=== PATIENT | female | born 1975 | race Caucasian/White ===

== ENCOUNTER 2018-04-05 17:34 | Emergency (ER) | payer OTHER ==
[~2018-04-05] VITALS: Ht 157.5 cm; Wt 99.3 kg
[~2018-04-05 17:34] MED LIST: ACEBUTCAFT PO; ACET325 PO; ACET500ER PO; ALPR.25 PO; AMOX500 PO; BUSP5 PO; CEPH500 PO; CIPR250 PO; CIPR500 PO; CLON.1; CLON.5 PO; CODGUAEL PO; CRUTCH4 USE; CYCL10 PO; DIAZ2; DICY20 PO; DIVA500ER PO; DULO30 PO; Depakene250 MG PO; Esgic Tablet1 EACH PO; FLUC150A PO; FLUC200 PO; FLUO10 PO; FLUO20; FLUO20 PO; GABA100 PO; GABA800 PO; HYDACE5 PO; HYDMOR2 PO; HYDPAM25; IBUP600 PO; IBUP800 PO; Inderal40 MG; KETO10 PO; LEVFLO500 PO; METF500 PO; METR500 PO; MULVITMINE; Maxalt10 MG PO; NAPR500 PO; NITR100 PO; NITR100CA PO; OMEP40CA12 PO; ONDA4 PO; OXYACE5T PO; OXYACE7.5T PO; OXYC10ER; OXYC5; OXYC5 PO; Omeprazole Dr 20 Mg PO; PANT40 PO; PARO20 PO; PARO25; PENVK500 PO; PHENA100 PO; PHENA200 PO; PREN-16 PO; PROACE100 PO; PROM25; PROM25 PO; PROP10; Percocet 5-3251 EACH PO; Prozac20 MG PO; QUET25; QUET25 PO; RANI150 PO; RXHYDACE PO; RXHYDMOR2 PO; RXOXYACE PO; RXSULTRIDS PO; SERT50; SULTRIDS PO; SULTRISS PO; TRAACE PO; TRAM50 PO; TRAZ100; TRAZ50; TRAZ50 PO; Ultram50 MG PO; Zithromax250 MG PO
[2018-04-05] MEDS ORDERED: Bactrim Ds Tab1 EACH PO (18:15)
[2018-04-05] MEDS ORDERED: Ultram50 MG PO (19:17)
[2018-04-05] MEDS ORDERED: Diflucan100 MG PO (19:26)
== END 2018-04-05 19:29 | disposition home or self-care (01) ==
LOC: ER 17:34
DX: M25.511 Pain in right shoulder (principal); L03.032 Cellulitis of left toe; L03.031 Cellulitis of right toe; L03.012 Cellulitis of left finger; L03.011 Cellulitis of right finger; Z88.8 Allergy status to other drugs, medicaments and biological substances; Z79.899 Other long term (current) drug therapy; Z87.891 Personal history of nicotine dependence; W01.0XXA Fall on same level from slipping, tripping and stumbling without subsequent striking against object, initial encounter
CPT/HCPCS: 73030; 99283

== ENCOUNTER → 2018-08-11 | Outpatient (CLI) | payer OTHER ==
[~2018-08-11] MED LIST changes: +B Complex #11 EACH PO; +BUTALB-ACETAMI1 EAC2 PO; +Bactrim Ds Tab1 EACH PO; +Bentyl10 MG PO; +Diflucan100 MG PO; +FLUOXETINE HCL60 MG PO; +Omeprazole20 M1 PO
[2018-08-12 14:50] LABS: Adenovirus F 40/41 Not Detected (NOT DETECT); Astrovirus Not Detected (NOT DETECT); Campylobacter Sp Not Detected (NOT DETECT); Cryptosporidium Not Detected (NOT DETECT); Cyclospora Cayetanensis Not Detected (NOT DETECT); E. Coli O157 Not Detected (NOT DETECT); Entamoeba Histolytica Not Detected (NOT DETECT); Enteroaggregative E. coli-EAEC Not Detected (NOT DETECT); Enterotoxigenic E. coli-ETEC Not Detected (NOT DETECT); Giardia Lamblia Not Detected (NOT DETECT); Norovirus GI/GII Not Detected (NOT DETECT); Plesiomonas Shigelloides Not Detected (NOT DETECT); Rotavirus A Not Detected (NOT DETECT); Salmonella Sp Not Detected (NOT DETECT); Sapovirus Not Detected (NOT DETECT); Shiga Toxin-prod E. coli-STEC Not Detected (NOT DETECT); Shigella/Enteroin E. coli-EIEC Not Detected (NOT DETECT); Vibrio Cholerae Not Detected (NOT DETECT); Vibrio Sp Not Detected (NOT DETECT); Yersinia Enterocolitica Not Detected (NOT DETECT)
[2018-08-12 19:30] LABS: Enteropathogenic E. coli-EPEC Detected (NOT DETECT)
== END ==
LOC: LAB SRC 15:00 → LAB SHORT 15:00 → EDSTATUS 08-08 12:35 → LAB FUT 08-08 12:35
PROVIDERS: Internal Medicine Gastroenterology
DX: R19.7 Diarrhea, unspecified (principal); R10.9 Unspecified abdominal pain
CPT/HCPCS: 87507

== ENCOUNTER 2018-11-06 09:49 | Day surgery (SDC) | payer OTHER ==
[~2018-11-06] VITALS: Ht 157.5 cm; Wt 101.1 kg
[~2018-11-06 09:49] MED LIST changes: +HYDR1TAB94 PO
== END 2018-11-06 12:30 | disposition home or self-care (01) ==
LOC: ORSCSDS 09:49
PROVIDERS: Internal Medicine Gastroenterology
PROC: 0D758ZZ Dilation of Esophagus, Via Natural or Artificial Opening Endoscopic (ICD-10-PCS; principal; 2018-11-06 11:30)
DX: R13.10 Dysphagia, unspecified (principal); K22.2 Esophageal obstruction; K44.9 Diaphragmatic hernia without obstruction or gangrene; K21.9 Gastro-esophageal reflux disease without esophagitis; Z79.899 Other long term (current) drug therapy
CPT/HCPCS: C1726; J2250; J7120

== ENCOUNTER → 2020-01-06 | Day surgery (SDC) | payer OTHER ==
[~2020-01-06] MED LIST changes: +BUTALB-ASPIRIN1 EACH PO
--- NOTE | 2020-01-06 12:15 | NUR ---
INTO SDS AT 1040 VSS WITH ELEVATED BP GIVEN SODA PER REQUEST AND HOOKED UP TO WATCH TV . Discharge instructions reviewed with patient. Patient verbalizes understanding. Copy given to patient to take home.
== END ==
LOC: CT 12-25 08:00
DX: D38.1 Neoplasm of uncertain behavior of trachea, bronchus and lung (principal); G89.29 Other chronic pain; M54.9 Dorsalgia, unspecified; K21.9 Gastro-esophageal reflux disease without esophagitis; Z88.8 Allergy status to other drugs, medicaments and biological substances; Z79.899 Other long term (current) drug therapy
CPT/HCPCS: 32405; 77012; 88305; A9270

== ENCOUNTER 2021-01-20 07:43 | Day surgery (SDC) | payer OTHER ==
[~2021-01-20] VITALS: Ht 157.5 cm; Wt 111.7 kg
[~2021-01-20 07:43] MED LIST changes: +AMIT50 PO; +GABA300 PO; +OMEP20ER PO; -Omeprazole20 M1 PO
[2021-01-20] MEDS ORDERED: TRAM50 PO (08:15)
--- NOTE | 2021-01-20 08:38 | NUR ---
[facility] warming gown applied. History, Chart, Medications and Allergies reviewed before start of procedure.Lungs clear T/O to Auscultation. Patient confirms NPO status and agrees with scheduled surgery. Pre-Op teaching done. Pt verbalizes understanding. Patient States Post-Procedure ride home has been arranged.PATIENT WAS A HARD IV START AND NEED A BLOOD DRAE FOR HCG.
--- NOTE | 2021-01-20 09:35 | NUR ---
01/20/21 0935 Luly Del Valle History, Chart, Medications and Allergies reviewed before start of procedure. Patient confirms NPO status and agrees with scheduled surgery. History, Chart, Medications and Allergies reviewed before start of procedure. Patient confirms NPO status and agrees with scheduled surgery.PATIENT DETERMINED TO BE ASA APPROPRIATE FOR MODERATE SEDATION PRIOR TO START OF PROCEDURE BY . PULSE OXIMETRY AND INTERMITTENT BP.
--- NOTE | 2021-01-20 10:31 | NUR ---
patient awake feeling stable. iv discontinues and patient getting dressed.
--- NOTE | 2021-01-20 10:33 | NUR ---
Discharge instructions reviewed with patient. Patient verbalizes understanding. Copy given to patient to take home. Patient States Post-Procedure ride home has been arranged. Discharged via wheelchair to private car for ride home.
== END 2021-01-20 10:37 | disposition home or self-care (01) ==
LOC: ORSCMMR 07:43 → ORD 09:00 → ORSCMMR 10:37
PROVIDERS: Internal Medicine Gastroenterology
PROC: 0DB78ZX Excision of Stomach, Pylorus, Via Natural or Artificial Opening Endoscopic, Diagnostic (ICD-10-PCS; principal; 2021-01-20 09:00)
PROC: 0DB48ZX Excision of Esophagogastric Junction, Via Natural or Artificial Opening Endoscopic, Diagnostic (ICD-10-PCS; principal; 2021-01-20 09:00)
PROC: 0DB98ZX Excision of Duodenum, Via Natural or Artificial Opening Endoscopic, Diagnostic (ICD-10-PCS; principal; 2021-01-20 09:00)
PROC: 0D758ZZ Dilation of Esophagus, Via Natural or Artificial Opening Endoscopic (ICD-10-PCS; principal; 2021-01-20 09:00)
DX: R13.14 Dysphagia, pharyngoesophageal phase (principal); K21.00 Gastro-esophageal reflux disease with esophagitis, without bleeding; K29.70 Gastritis, unspecified, without bleeding; F41.8 Other specified anxiety disorders; Z79.899 Other long term (current) drug therapy
CPT/HCPCS: 84702; 84703; 88305; 88312; 88342; A9270; C1726; J2250; J3010; J7120

== ENCOUNTER → 2021-06-06 | Outpatient (CLI) | payer OTHER ==
[2021-06-06 16:43] LABS: BASOPHILS ABSOLUTE AUTO 0.08 K/mm3 (0.00-0.23); BASOPHILS PERCENT AUTO 1 % (0-2); EOSINOPHILS ABSOLUTE AUTO 0.14 K/mm3 (0.00-0.68); EOSINOPHILS PERCENT AUTO 2 % (0-6); Hematocrit 36.3 % (33.0-51.0); Hemoglobin 11.3 g/dL (11.5-16.0); IMMATURE GRAN ABSOLUTE AUTO 0.07 K/mm3 (0.00-0.10); IMMATURE GRAN PERCENT AUTO 1 % (0-1); LYMPHOCYTES ABSOLUTE AUTO 1.71 K/mm3 (0.84-5.20); LYMPHOCYTES PERCENT AUTO 28 % (21-46); MONOCYTES ABSOLUTE AUTO 0.47 K/mm3 (0.16-1.47); MONOCYTES PERCENT AUTO 8 % (4-13); Mean Corpuscular HGB 27.7 pg (26.0-34.0); Mean Corpuscular HGB Conc 31.1 g/dL (31.5-36.5); Mean Corpuscular Volume 89 fL (80-100); Mean Platelet Volume 10.3 fL (9.1-12.4); NEUTROPHILS ABSOLUTE AUTO 3.75 K/mm3 (1.96-9.15); NEUTROPHILS PERCENT AUTO 60 % (41-73); Platelet Count 436 K/mm3 (150-400); RDW Coefficient Variation 14.1 % (11.7-14.2); RDW Standard Deviation 45.2 fL (35.1-46.3); Red Blood Cell Count 4.08 M/mm3 (3.80-5.20); White Blood Cell Count 6.22 K/mm3 (4.00-11.30)
[2021-06-06 17:48] LABS: Alanine Aminotransfer (ALT/SGP 22 U/L (12-78); Albumin, Blood 3.4 g/dL (3.4-5.0); Albumin/Globulin Ratio 0.8 (0.8-1.8); Alk Phos 147 U/L (50-136); Anion Gap 8 mmol/L (6-16); Aspartate Aminotrans (AST/SGOT 14 U/L (12-37); Bilirubin, Total 0.2 mg/dL (0.1-1.0); Blood Urea Nitrogen 16 mg/dL (8-24); Bun/Creatinine Ratio 28.8 (12.0-20.0); CHOL/HDL RATIO 6.6; CO2, Blood 21 mmol/L (21-32); Calcium, Blood 8.9 mg/dL (8.5-10.1); Chloride, Blood 105 mmol/L (98-108); Cholesterol 317 mg/dL (50-200); Creatinine, Blood 0.56 mg/dL (0.40-1.00); Globulin, Blood 4.4 g/dL (2.2-4.0); Glomerular Filtration Rate >60 (60-); Glucose, Blood 291 mg/dL (70-99); HDL Cholesterol 48 mg/dL (>39); LDL/HDL RATIO Unable to Calculate; Low Density Lipoprotein Chol Unable to Calculate mg/dL (0-110); Potassium, Blood 3.7 mmol/L (3.5-5.5); Sodium, Blood 134 mmol/L (136-145); Total Protein, Blood 7.8 g/dL (6.4-8.2); Triglycerides 635 mg/dL (30-160); Very Low Density Lipoprot Chol Unable to Calculate mg/dL (6-32)
[2021-06-06 18:12] LABS: LDL Direct Measurement 145 mg/dL (0-130)
== END | disposition home or self-care (01) ==
LOC: LAB SHORT 15:09 → LAB 15:09
PROVIDERS: Nurse Practitioner
DX: I10 Essential (primary) hypertension (principal); E11.9 Type 2 diabetes mellitus without complications; E78.5 Hyperlipidemia, unspecified
CPT/HCPCS: 80053; 80061; 83036; 83721; 85025

== ENCOUNTER 2025-06-19 12:32 | Emergency (ER) | payer OTHER ==
[~2025-06-19] VITALS: Ht 157.5 cm; Wt 103.9 kg
[~2025-06-19 12:32] MED LIST changes: +ALBU90OI INH; +ASPI81CH PO; +ATOR40TA PO; +BUTALB-ACETAMI1 EAC6 PO; +Cymbalta20 MG PO; +DULO60 PO; +GLIM2 PO; +Glipizide ER5 MG PO; +MELO7.5 PO; +METF500C PO; +MUPIROCIN1 G1 TOP; +Prinivil10 MG PO; +TRAZ100 PO; +VITAMIN B COMPLEX PO; +Voltaren100 GM TOP
[2025-06-19 14:52] LABS: BASOPHILS ABSOLUTE AUTO 0.06 K/mm3 (0.00-0.23); BASOPHILS PERCENT AUTO 1 % (0-2); EOSINOPHILS ABSOLUTE AUTO 0.13 K/mm3 (0.00-0.68); EOSINOPHILS PERCENT AUTO 2 % (0-6); Hematocrit 26.4 % (33.0-51.0); Hemoglobin 7.4 g/dL (11.5-16.0); IMMATURE GRAN ABSOLUTE AUTO 0.02 K/mm3 (0.00-0.10); IMMATURE GRAN PERCENT AUTO 0 % (0-1); LYMPHOCYTES ABSOLUTE AUTO 1.88 K/mm3 (0.84-5.20); LYMPHOCYTES PERCENT AUTO 26 % (21-46); MONOCYTES ABSOLUTE AUTO 0.53 K/mm3 (0.16-1.47); MONOCYTES PERCENT AUTO 7 % (4-13); Mean Corpuscular HGB Conc 28.0 g/dL (31.5-36.5); Mean Corpuscular Volume 81 fL (80-100); NEUTROPHILS ABSOLUTE AUTO 4.50 K/mm3 (1.96-9.15); NEUTROPHILS PERCENT AUTO 63 % (41-73); NRBC ABSOLUTE 0.00 K/mm3 (0.00-0.02); NRBC Auto 0.0 /100 WBC (0.0-0.2); Platelet Count 582 K/mm3 (150-400); RDW Coefficient Variation 18.4 % (11.7-14.2); RDW Standard Deviation 54.5 fL (35.1-46.3)
[2025-06-19 15:09] LABS: Alanine Aminotransfer (ALT/SGP 18.0 U/L (12-78); Albumin, Blood 3.2 g/dL (3.4-5.0); Albumin/Globulin Ratio 0.8 (0.8-1.8); Anion Gap 9.0 mmol/L (3-11); Aspartate Aminotrans (AST/SGOT 11.0 U/L (12-37); Bilirubin, Total 0.1 mg/dL (0.1-1.0); Blood Urea Nitrogen 11.0 mg/dL (8-24); CO2, Blood 20.0 mmol/L (21-32); Calcium, Blood 8.3 mg/dL (8.5-10.1); Chloride, Blood 113.0 mmol/L (98-108); Creatinine, Blood 0.7 mg/dL (0.40-1.00); Globulin, Blood 3.9 g/dL (2.2-4.0); Glucose, Blood 200.0 mg/dL (70-99); Potassium, Blood 4.2 mmol/L (3.5-5.5); Sodium, Blood 138.0 mmol/L (136-145); Total Protein, Blood 7.1 g/dL (6.4-8.2)
[2025-06-19 15:54] LABS: Source, Urine Clean Catch
[2025-06-19 16:03] LABS: Bilirubin, Urine Neg (Neg); Color, Urine Yellow (P-Yellow); Glucose Qualitative, Urine Neg (Neg); Ketones, Urine Neg (Neg); Leukocyte Esterase, Urine 3+ (Neg); Protein, Urine 2+ (Neg); Specific Gravity, Urine 1.025 (1.003-1.022); Urobilinogen, Urine NORM (Normal)
[2025-06-19 16:19] LABS: Red Blood Cells, Urine 0-2 /hpf (0-2)
[2025-06-19] MEDS ORDERED: CefTRIAXone 1000 MG Vial IM ONE (17:45)
[2025-06-19] MEDS ORDERED: CEPH500 PO (17:54)
[2025-06-19] MEDS ORDERED: NS 1,000 ML IV SCH (18:10)
[2025-06-19] MEDS ORDERED: Diflucan150 MG PO (18:28)
[2025-06-19] MEDS ORDERED: Zofran4 MG PO (18:28)
[2025-06-19 19:01] VITALS: BP 105/59
== END 2025-06-19 19:43 | disposition home or self-care (01) ==
LOC: ER 12:32
PROVIDERS: Physician Assistant
DX: N39.0 Urinary tract infection, site not specified (principal); D64.9 Anemia, unspecified; Z88.8 Allergy status to other drugs, medicaments and biological substances; Z79.84 Long term (current) use of oral hypoglycemic drugs; Z79.899 Other long term (current) drug therapy; Z87.891 Personal history of nicotine dependence
CPT/HCPCS: 74177; 80053; 81001; 83690; 85025; 86850; 86900; 86901; 87077; 87086; 87186; 96372-59; 99284-25; J0696; J7030; Q9967

== ENCOUNTER → 2025-06-25 | Outpatient (CLI) | payer OTHER ==
[~2025-06-25] MED LIST changes: +Diflucan150 MG PO; +Zofran4 MG PO
[2025-06-25 20:03] LABS: Bacterial Vaginosis PCR Negative (NEGATIVE); Candida Group, PCR NOT DETECTED (NOT DETECT)
[2025-06-25 22:48] LABS: Candida glabrata-krusei, PCR DETECTED (NOT DETECT)
== END ==
LOC: LAB 18:42 → LAB SHORT 18:42
PROVIDERS: Family Medicine
DX: R30.0 Dysuria (principal)
CPT/HCPCS: 81515

== ENCOUNTER → 2025-06-25 | Outpatient (CLI) | payer OTHER ==
[~2025-06-25] MED LIST changes: +LISI20 PO
[2025-06-25 15:38] LABS: BASOPHILS ABSOLUTE AUTO 0.09 K/mm3 (0.00-0.23); BASOPHILS PERCENT AUTO 1 % (0-2); EOSINOPHILS ABSOLUTE AUTO 0.33 K/mm3 (0.00-0.68); EOSINOPHILS PERCENT AUTO 4 % (0-6); Hematocrit 28.6 % (33.0-51.0); Hemoglobin 8.2 g/dL (11.5-16.0); IMMATURE GRAN ABSOLUTE AUTO 0.02 K/mm3 (0.00-0.10); IMMATURE GRAN PERCENT AUTO 0 % (0-1); LYMPHOCYTES ABSOLUTE AUTO 1.86 K/mm3 (0.84-5.20); LYMPHOCYTES PERCENT AUTO 25 % (21-46); MONOCYTES ABSOLUTE AUTO 0.48 K/mm3 (0.16-1.47); MONOCYTES PERCENT AUTO 7 % (4-13); Mean Corpuscular HGB Conc 28.7 g/dL (31.5-36.5); Mean Corpuscular Volume 82 fL (80-100); NEUTROPHILS ABSOLUTE AUTO 4.64 K/mm3 (1.96-9.15); NEUTROPHILS PERCENT AUTO 63 % (41-73); NRBC ABSOLUTE 0.00 K/mm3 (0.00-0.02); NRBC Auto 0.0 /100 WBC (0.0-0.2); Platelet Count 552 K/mm3 (150-400); RDW Coefficient Variation 17.7 % (11.7-14.2); RDW Standard Deviation 53.1 fL (35.1-46.3)
[2025-06-25 17:01] LABS: Ferritin, Serum 3.0 ng/mL (8-252); Total Iron Binding Capacity 428.0 ug/dL (250-450)
[2025-06-27 06:26] LABS: TISSUE TRANSGLUTAMINAS TTG,IGA <1.02 FLU (0.00-4.99); TISSUE TRANSGLUTAMINASE AB,IGG <0.82 FLU (0.00-4.99)
== END ==
LOC: LAB 14:51 → LAB SHORT 14:51
PROVIDERS: Family Medicine
DX: D75.839 Thrombocytosis, unspecified (principal); D50.9 Iron deficiency anemia, unspecified; R30.0 Dysuria
CPT/HCPCS: 81515; 82728; 83516; 83540; 83550; 85025; 85060; 86364

== ENCOUNTER 2025-07-08 05:26 | Day surgery (SDC) | payer OTHER ==
[~2025-07-08 05:26] MED LIST changes: +Sod Ferric Gluc Complx/Sucrose 125 MG in NS 100 ML IV SCH
[2025-07-08 09:57] VITALS: BP 121/66
== END 2025-07-08 11:58 | disposition home or self-care (01) ==
LOC: ATC 05:26
DX: D50.8 Other iron deficiency anemias (principal); F41.9 Anxiety disorder, unspecified; F32.A Depression, unspecified; K21.9 Gastro-esophageal reflux disease without esophagitis; K22.70 Barrett's esophagus without dysplasia; M54.50 Low back pain, unspecified; G89.4 Chronic pain syndrome; M15.9 Polyosteoarthritis, unspecified; E78.5 Hyperlipidemia, unspecified; I10 Essential (primary) hypertension; J45.909 Unspecified asthma, uncomplicated; E11.9 Type 2 diabetes mellitus without complications; E66.01 Morbid (severe) obesity due to excess calories; Z68.39 Body mass index [BMI] 39.0-39.9, adult; Z79.84 Long term (current) use of oral hypoglycemic drugs; Z79.899 Other long term (current) drug therapy; Z88.8 Allergy status to other drugs, medicaments and biological substances
CPT/HCPCS: 96365; J2916

== ENCOUNTER 2025-07-15 04:19 | Day surgery (SDC) | payer OTHER ==
[~2025-07-15 04:19] MED LIST changes: -Sod Ferric Gluc Complx/Sucrose 125 MG in NS 100 ML IV SCH
[2025-07-15] MEDS ORDERED: Sod Ferric Gluc Complx/Sucrose 125 MG in NS 100 ML IV SCH (06:00)
[2025-07-15 15:12] VITALS: BP 121/79
== END 2025-07-15 16:03 | disposition home or self-care (01) ==
LOC: ATC 04:19
DX: D50.8 Other iron deficiency anemias (principal); K21.9 Gastro-esophageal reflux disease without esophagitis; K22.70 Barrett's esophagus without dysplasia; M54.50 Low back pain, unspecified; K22.2 Esophageal obstruction; G89.4 Chronic pain syndrome; E78.5 Hyperlipidemia, unspecified; I10 Essential (primary) hypertension; E11.9 Type 2 diabetes mellitus without complications; J45.909 Unspecified asthma, uncomplicated; E66.01 Morbid (severe) obesity due to excess calories; Z68.39 Body mass index [BMI] 39.0-39.9, adult; Z79.84 Long term (current) use of oral hypoglycemic drugs; Z79.899 Other long term (current) drug therapy; Z88.8 Allergy status to other drugs, medicaments and biological substances; Z96.659 Presence of unspecified artificial knee joint; Z01.812 Encounter for preprocedural laboratory examination; M17.12 Unilateral primary osteoarthritis, left knee
CPT/HCPCS: 36415; 80048; 83036; 85025; 96365; J2916

== ENCOUNTER 2025-07-28 02:21 | Day surgery (SDC) | payer OTHER ==
[2025-07-28] MEDS ORDERED: Sod Ferric Gluc Complx/Sucrose 125 MG in NS 100 ML IV SCH (09:00)
[2025-07-28 10:22] VITALS: BP 118/70
== END 2025-07-28 11:27 | disposition home or self-care (01) ==
LOC: ATC 02:21
DX: D50.8 Other iron deficiency anemias (principal); K21.9 Gastro-esophageal reflux disease without esophagitis; K22.70 Barrett's esophagus without dysplasia; I10 Essential (primary) hypertension; Z79.84 Long term (current) use of oral hypoglycemic drugs; Z79.899 Other long term (current) drug therapy; Z88.8 Allergy status to other drugs, medicaments and biological substances
CPT/HCPCS: 96365; J2916

== ENCOUNTER 2025-08-04 07:00 | Day surgery (SDC) | payer OTHER ==
[~2025-08-04] VITALS: Ht 157.5 cm; Wt 102.5 kg
[2025-08-04] MEDS ORDERED: Chlorhexidine Mouth Care 15 ML UDC MT SCH (07:25)
[2025-08-04] MEDS ORDERED: Tranexamic Acid 100 ML IV SCH (07:25)
[2025-08-04] MEDS ORDERED: CeFAZolin Sodium 2,000 MG in NS 100 ML IV SCH (07:25)
[2025-08-04] MEDS ORDERED: Ropivacaine 0.5% HCl/Pf 123.125 MG,EPINEPHrine HCL 0.25 MG,Ketorolac Tromethamine 15 MG... INFIL SCH (07:25)
[2025-08-04] MEDS ORDERED: FentaNYL Citrate 50 MCG/ML 2 ML Injection ONE (07:53)
[2025-08-04] MEDS ORDERED: Midazolam HCl 1MG / ML 2ML Vial ONE (07:53)
[2025-08-04 07:55] VITALS: BP 125/98
--- NOTE | 2025-08-04 07:59 | NUR ---
History, Chart, Medications and Allergies reviewed before start of procedure. Pre-Op teaching done. Pt verbalizes understanding. Ambulatory in Day Surgery. Patient confirms NPO status and agrees with scheduled surgery. Patient States Post-Procedure ride home has been arranged.
[2025-08-04 09:16] LABS: Hematocrit 33.6 % (33.0-51.0); Hemoglobin 9.7 g/dL (11.5-16.0); Mean Corpuscular HGB Conc 28.9 g/dL (31.5-36.5); Mean Corpuscular Volume 86 fL (80-100); NRBC ABSOLUTE 0.00 K/mm3 (0.00-0.02); NRBC Auto 0.0 /100 WBC (0.0-0.2); Platelet Count 405 K/mm3 (150-400); RDW Coefficient Variation 20.5 % (11.7-14.2); RDW Standard Deviation 64.4 fL (35.1-46.3)
--- NOTE | 2025-08-04 09:16 | NUR ---
DR. BLAS ORDERED REPEAT CBC. SURGERY ON HOLD UNTIL LAB RESULTS BACK.
--- NOTE | 2025-08-04 09:25 | NUR ---
CBC RESULTS BACK. DR. KELLY AT PATIENT BEDSIDE. PATIENT AND DR. KELLY AGREE TO RESCHEDULE SURGERY.
== END 2025-08-04 09:37 | disposition home or self-care (01) ==
LOC: ORSCMMR 07:00 → ORD 08:45 → ORSCMMR 08:45 → ORD 11:00
PROVIDERS: Anesthesiology
DX: M17.12 Unilateral primary osteoarthritis, left knee (principal); Z53.9 Procedure and treatment not carried out, unspecified reason
CPT/HCPCS: 36415; 82947; 85027; A9270; J0166; J0690; J0735; J1885; J2250; J2795; J3010; J7120

== ENCOUNTER 2025-08-13 02:02 | Day surgery (SDC) | payer OTHER ==
[2025-08-13] MEDS ORDERED: Sod Ferric Gluc Complx/Sucrose 125 MG in NS 100 ML IV SCH (06:00)
[2025-08-13 15:34] VITALS: BP 138/74
[2025-08-13] MEDS ORDERED: SUBOXONE PO (16:22)
== END 2025-08-13 17:10 | disposition home or self-care (01) ==
LOC: ATC 02:02
DX: D50.8 Other iron deficiency anemias (principal); I10 Essential (primary) hypertension; E11.9 Type 2 diabetes mellitus without complications; K21.9 Gastro-esophageal reflux disease without esophagitis; F31.9 Bipolar disorder, unspecified; E78.5 Hyperlipidemia, unspecified; G40.409 Other generalized epilepsy and epileptic syndromes, not intractable, without status epilepticus; Z79.84 Long term (current) use of oral hypoglycemic drugs; Z79.899 Other long term (current) drug therapy; Z88.8 Allergy status to other drugs, medicaments and biological substances; Z90.49 Acquired absence of other specified parts of digestive tract
CPT/HCPCS: 96365; J2916

== ENCOUNTER 2025-08-26 00:42 | Day surgery (SDC) | payer OTHER ==
[~2025-08-26 00:42] MED LIST changes: +SUBOXONE PO
[2025-08-26] MEDS ORDERED: Sod Ferric Gluc Complx/Sucrose 125 MG in NS 100 ML IV SCH (01:00)
[2025-08-26 08:56] VITALS: BP 129/88
== END 2025-08-26 10:22 | disposition home or self-care (01) ==
LOC: ATC 00:42
DX: D50.8 Other iron deficiency anemias (principal); I10 Essential (primary) hypertension; K21.9 Gastro-esophageal reflux disease without esophagitis; E78.5 Hyperlipidemia, unspecified; E11.9 Type 2 diabetes mellitus without complications; Z79.84 Long term (current) use of oral hypoglycemic drugs; Z88.8 Allergy status to other drugs, medicaments and biological substances; Z79.899 Other long term (current) drug therapy
CPT/HCPCS: 96365; J2916

== ENCOUNTER 2025-09-09 10:40 | Day surgery (SDC) | payer OTHER ==
[2025-09-09] MEDS ORDERED: Sod Ferric Gluc Complx/Sucrose 125 MG in NS 100 ML IV SCH (10:50)
[2025-09-09 10:51] VITALS: BP 125/83
== END 2025-09-09 11:57 | disposition home or self-care (01) ==
LOC: ATC 10:40
DX: D50.8 Other iron deficiency anemias (principal); E11.9 Type 2 diabetes mellitus without complications; I10 Essential (primary) hypertension; E78.5 Hyperlipidemia, unspecified; G89.4 Chronic pain syndrome; K21.9 Gastro-esophageal reflux disease without esophagitis; F43.10 Post-traumatic stress disorder, unspecified; G40.409 Other generalized epilepsy and epileptic syndromes, not intractable, without status epilepticus; F41.8 Other specified anxiety disorders; K22.70 Barrett's esophagus without dysplasia; E66.01 Morbid (severe) obesity due to excess calories; Z68.39 Body mass index [BMI] 39.0-39.9, adult; Z79.84 Long term (current) use of oral hypoglycemic drugs; Z79.899 Other long term (current) drug therapy; Z88.8 Allergy status to other drugs, medicaments and biological substances; Z90.49 Acquired absence of other specified parts of digestive tract
CPT/HCPCS: 76830; 76856; 96365; J2916

== ENCOUNTER 2025-09-17 02:53 | Day surgery (SDC) | payer OTHER ==
[~2025-09-17 02:53] MED LIST changes: +Sod Ferric Gluc Complx/Sucrose 125 MG in NS 100 ML IV SCH
[2025-09-17 14:00] VITALS: BP 121/81
== END 2025-09-17 15:09 | disposition home or self-care (01) ==
LOC: ATC 02:53
DX: D50.8 Other iron deficiency anemias (principal); K21.9 Gastro-esophageal reflux disease without esophagitis; K22.70 Barrett's esophagus without dysplasia; G89.4 Chronic pain syndrome; E78.5 Hyperlipidemia, unspecified; I10 Essential (primary) hypertension; E11.9 Type 2 diabetes mellitus without complications; J45.909 Unspecified asthma, uncomplicated; Z79.84 Long term (current) use of oral hypoglycemic drugs; Z79.899 Other long term (current) drug therapy; Z88.8 Allergy status to other drugs, medicaments and biological substances
CPT/HCPCS: 96365; 99211; J2916

== ENCOUNTER 2025-10-29 03:36 | Day surgery (SDC) | payer OTHER ==
[2025-10-29 10:00] VITALS: BP 128/83
== END 2025-10-29 11:15 | disposition home or self-care (01) ==
LOC: ATC 03:36
DX: D50.8 Other iron deficiency anemias (principal); G89.4 Chronic pain syndrome; M15.9 Polyosteoarthritis, unspecified; K21.9 Gastro-esophageal reflux disease without esophagitis; E11.9 Type 2 diabetes mellitus without complications; E78.5 Hyperlipidemia, unspecified; J45.909 Unspecified asthma, uncomplicated; K22.70 Barrett's esophagus without dysplasia; Z79.84 Long term (current) use of oral hypoglycemic drugs; Z79.899 Other long term (current) drug therapy; Z88.8 Allergy status to other drugs, medicaments and biological substances; Z96.651 Presence of right artificial knee joint
CPT/HCPCS: 96365; J2916

== ENCOUNTER 2025-11-04 01:50 | Day surgery (SDC) | payer OTHER ==
[2025-11-04 15:05] VITALS: BP 141/93
== END 2025-11-04 16:15 | disposition home or self-care (01) ==
LOC: ATC 01:50
DX: D50.8 Other iron deficiency anemias (principal); G89.4 Chronic pain syndrome; K21.9 Gastro-esophageal reflux disease without esophagitis; E78.5 Hyperlipidemia, unspecified; I10 Essential (primary) hypertension; M17.12 Unilateral primary osteoarthritis, left knee; E11.9 Type 2 diabetes mellitus without complications; J45.909 Unspecified asthma, uncomplicated; M54.16 Radiculopathy, lumbar region; K22.70 Barrett's esophagus without dysplasia; N95.1 Menopausal and female climacteric states; E66.01 Morbid (severe) obesity due to excess calories; Z68.39 Body mass index [BMI] 39.0-39.9, adult; Z79.84 Long term (current) use of oral hypoglycemic drugs; Z79.899 Other long term (current) drug therapy; Z88.8 Allergy status to other drugs, medicaments and biological substances; Z96.651 Presence of right artificial knee joint
CPT/HCPCS: 96365; J2916